=== PATIENT | female | born 1985 | race Caucasian/White ===

== ENCOUNTER 2022-04-18 00:30 | Day surgery (SDC) | payer OTHER, SELFPAY ==
[2022-04-11 10:42] VITALS: BMI 31.4
--- NOTE | 2022-04-11 10:43 | PC.NURSE ---
Report to the Outpatient Waiting Room, entrance under the green pavilion located off [facility], at time _0845__ on date _04/18/22_. OR Time: __1045_. Time changes happen often and if your time is changed the preop area will call you the afternoon before. - You and your visitor will be asked to self-screen and do not enter if you have any COVID symptoms. - Only one visitor and NO children visitors are allowed at this time. - The patient visitor is requested to leave or wait in car when not with patient due to restrictions. - A mask is required within the hospital. Patients may have clear liquids (water, carbonated beverages, clear teas, apple juice) until 3 hours prior to surgery with a maximum of 20 ounces. - No food from midnight until time of surgery - Infants may have breast milk until 4 hours before surgery, infant formula 6 hours prior to surgery. - Children will be allowed to drink immediately following surgery. If applicable, please bring a bottle or sippy cup to assist with drinking. Juice, water, soda, and popsicles are readily available. For infants on formula, please bring formula the day of surgery. Pacifiers are allowed. Take the following medications with a SIP of water the morning of surgery: __prozac___ Medications to discontinue per physician _stop vitamins and supplements 3 days prior Date to take last dose Please no make-up, nail frisian, hairspray, perfume, deodorant, or body powder the day of surgery. No jewelry (including any body piercings) or valuables the day of surgery, leave them at home. Please take a shower or bath the night before, or the morning of, surgery with an antibacterial soap. Wear comfortable, loose fitting clothing. Children are encouraged to wear pajamas. - Jewelry must be removed prior to entering the operating room. Rings and piercings that are not removed may be cut off. - The hospital will not accept responsibility for valuables. - Please leave all valuables, including medications, at home the day of surgery. If you are going home after surgery, a licensed hazmat cdl driver must drive you home. - NO public transportation without another adult. - We recommend that an adult stay with you for 24 hours following discharge. - We also recommend that you do not drive, make important decision, drink alcoholic beverages, or take any drugs that were not prescribed by your health care provider for at least 24 hours after your discharge time. For Pediatric surgeries, we recommend two adults accompany the child home (only one inside the building at this time). Follow any additional instructions given to you from your surgeon. If you or anyone in your household have experienced Covid symptoms in the past week, please notify your surgeon or the nurse liaison at the phone number below for possible testing. Telephone instructions given to _patient_and asked if any additional questions and then verbalized understanding. Patient advised to call surgeon office or pre surgery nurse liaison [phone] if any additional questions.
[2022-04-18] VITALS (10 sets, daily range): BP systolic 102–127; BP diastolic 51–85; PULSE 42–65; RESP 10–16; TEMP 36–36.3; O2SAT 97–100
[2022-04-18] MEDS: LACTATED RINGERS 1,000 ML 30 ML IV CONT ×2 (07:00→09:37)
[2022-04-18] MEDS: ACETAMINOPHEN 500 MG TABLET 1000 MG PO (07:00)
[2022-04-18] MEDS: KETOROLAC 15 MG/ML VIAL (*BKC) IV PUSH (07:00)
--- NOTE | 2022-04-18 07:34 | WPDHPUPDATE1 ---
History and Physical Update Update Date/Time: 04/18/22 07:34 History and Physical has been reviewed, including an updated exam of the patient. There are NO changes in the patient's condition. Risks, benefits, and alternatives have been discussed and questions answered. Patient agrees to proceed with procedure.
--- NOTE | 2022-04-18 07:34 | PM.HPGS ---
History of Present Illness History of Present Illness Consent: Risks, benefits, and alternatives have been discussed and questions answered. Patient agrees to proceed with procedure. Chief complaint: Vol Sterilization Narrative: Mary Piedra is a 36 year old female presenting for bilateral tubal ligation with Falope rings. Patient has completed her childbearing and after reviewing all options, she has requested permanent sterilization. Risks of infection, bleeding, perforation and injury to internal organs, and tubal failure were reviewed. Increased ectopic if tubal fails was also discussed. The permanent and irreversible nature of a tubal was also reviewed. Patient voices understanding and agrees to proceed. Review of Systems Review of Systems: not repeated day of surgery; patient states no changes in status PMFSH Past Medical History Medical History (Updated 04/18/22 @ 07:37 by Kristina Garrison MD) Anxiety History of Surgical History Surgical History (Updated 04/18/22 @ 07:36 by Kristina Garrison MD) History of Family History Family History (Updated 04/09/15 @ 09:07 by DOCTOR UNKNOWN) Other Family history of allergic disorder Family history of cardiac disorder Social History Social History Smoking status: Never smoker Second hand tobacco smoke exposure: No Alcohol intake: current Drinks per week: 1 Substance use: never Substance use type: does not use Living arrangements: with family Spiritual care concerns: No Meds Home Medications and Allergies Home Medications Medication Instructions Recorded Confirmed Type fluoxetine 10 mg tablet 10 mg PO DAILY 04/11/22 04/18/22 History norethindrone 1 mg-ethinyl 1 tablet PO DAILY 04/11/22 04/18/22 History estradiol 20 mcg (21)-iron 75 mg (7) tablet ([place] Fe 07/29 (28)) Allergies Allergy/AdvReac Type Severity Reaction Status Date / Time amoxicillin Allergy Mild Rash Verified 04/18/22 07:05 Penicillins Allergy Unknown Unknown Verified 04/18/22 07:05 Vital Signs Vital Signs - 24 hr 04/18/22 06:43 Temperature 96.8 F L Pulse Rate 65 Respiratory Rate 16 Blood Pressure 124/84 Pulse Oximetry 100 Oxygen Delivery Room Air Exam Const: General: healthy appearing and alert Orientation/consciousness: patient oriented x3 GI: GI Palp: Yes Soft to palpation, No Tenderness to palpation present (GI) and No Palpable mass present : External Female Exam: normal external appearance Speculum Exam - Vagina: normal appearance of the vagina and normal vaginal discharge Speculum Exam - Cervix: normal appearance of the cervix Bimanual exam- vagina & uterus: uterine size normal and consistency normal Bimanual Exam- Adnexa, other: normal adnexae and No adnexal tenderness Neuro: General: patient oriented x3 Assessment and Plan Assessment and plan (1) Encounter for sterilization: Code(s): Z30.2 - Encounter for sterilization Status: Acute Assessment and Plan: Plan to proceed with laparoscopic bilateral tubal ligation with Falope rings
--- NOTE | 2022-04-18 08:05 | P.PNAN_ITS ---
Anes - Initial Pre Proc Eval Procedure: Operation Date: 04/18/22 08:15 Proposed Procedures p Laparoscopic Bilateral Tubal Ligation with Fallopian Rings - Kristina Garrison MD Date/Time: 04/18/22 08:05 Surgeon: Kristina Garrison MD Pre Op Diagnosis: Vol Sterilization Patient Data Age: 36 Gender: F Height: 1.68 m Weight: 87.5 kg Last Vital Signs Temp 36.0 C L 04/18/22 06:43 Pulse 65 04/18/22 06:43 Resp 16 04/18/22 06:43 BP 124/84 04/18/22 06:43 Pulse Ox 100 04/18/22 06:43 O2 Del Method Room Air 04/18/22 06:43 Allergies Allergy/AdvReac Type Severity Reaction Status Date / Time amoxicillin Allergy Mild Rash Verified 04/18/22 07:05 Penicillins Allergy Unknown Unknown Verified 04/18/22 07:05 Home Medications Medication Instructions Recorded Confirmed Type fluoxetine 10 mg tablet 10 mg PO DAILY 04/11/22 04/18/22 History norethindrone 1 mg-ethinyl 1 tablet PO DAILY 04/11/22 04/18/22 History estradiol 20 mcg (21)-iron 75 mg (7) tablet ([place] Fe 07/29 (28)) Patient hx anesthesia problems: none Family hx anesthesia problems: none Results Review: All pre-operative results and documents have been reviewed as part of the pre- operative evaluation. [facility] Past Medical History Medical History Anxiety Surgical History Surgical History History of Family History Family History Other Family history of allergic disorder Family history of cardiac disorder Social History Social History Smoking status: Never smoker Second hand tobacco smoke exposure: No Alcohol intake: current Drinks per week: 1 Substance use: never Substance use type: does not use Living arrangements: with family Spiritual care concerns: No Anes - Eval Final PreProcedure Day of Procedure 04/18/22 08:05 Patient weight: obese Heart: regular rate and rhythm Lungs: clear to auscultation Airway: Mallampati scale class II Neurological: alert and oriented Last oral intake: >/= 8 hours ASA classification: II Emergent: no Anesthetic plan: proceed Anesthesia type and monitoring: general ETT and standard monitoring Results Review: All pre-operative results and documents have been reviewed as part of the pre- operative evaluation. Informed Consent: The patient's anesthetic plan and its attendant risks and benefits were discussed with the patient/family/POA. Questions were solicited and answers provided to the satisfaction of the patient/family/POA.
--- NOTE | 2022-04-18 08:57 | W.PM.PROC2 ---
Procedure Note - Detailed Date of Procedure 04/18/22 Pre-op Diagnosis Request sterilization Post-op Diagnosis Same Procedure Performed Laparoscopic bilateral tubal ligation with Falope rings Surgeon Kristina Garrison MD Anesthesia General Findings Normal-appearing tubes, ovaries, and uterus Description of Procedure The patient is taken to operating and placed under anesthesia in the dorsal lithotomy position. The patient is prepped and draped in the usual sterile fashion. The staff had previously drained the bladder. The bivalve speculum is placed in the vagina and the cervix grasped on the anterior lip with a tenaculum. The acorn manipulator was placed and the speculum was removed. Attention was then turned to the abdomen where a vertical skin incision was made at the base of the umbilicus. The abdomen is tented and the Veress needle placed. Patient pressure is 4 mmHg. Pneumoperitoneum was obtained to a patient pressure of 15mmHg. The Veress needle was removed and the 5mm Optiview trocar is placed while tenting the abdomen with towel clamps. The intra-abdominal placement was confirmed with the laparoscope. The patient is placed in Trendelenburg. The 8mm trocar is placed through horizontal incision 2cm above the symphysis pubis in the midline under direct visualization. The blunt probe was used to bring the tubes into the surgical field. The ring applicator was used and the left tube grasped. The tube was brought up into the applicator and a ring was applied. The 2nd ring is released upon changing the settings to the 2nd position. The ring is grasped with a grasper and removed from the abdomen. A 2nd set of rings is opened and placed and the right tube is grasped with the applicator a good loop of tube was brought into the applicator and a ring was applied. All instruments are removed and the pneumoperitoneum was reduced. Skin incisions were closed using 4-0 nylon in an interrupted fashion. Vaginal instruments are removed. Patient is awakened from anesthesia and taken to recovery in stable condition. Sponge, needle, and instrument counts are correct per the OR staff. Estimated Blood Loss 5 Drains No Packing No Pathology None sent Complications No immediate complications Condition Stable Disposition PACU
[2022-04-18] MEDS: SCOPOLAMINE 1.5 MG PATCH TRANSDERM (09:23)
[2022-04-18] MEDS: fentaNYL CITRATE INJ (*CRX) 100 MCG/2 ML VIAL 25 MCG IV PUSH ×2 (09:34→09:36)
--- NOTE | 2022-04-18 09:42 | SUR.PHASEI ---
0940: Simple mask removed.
[2022-04-18] MEDS: ONDANSETRON INJ 4 MG/2 ML VIAL IV PUSH (10:14)
[2022-04-18] MEDS: diphenhydrAMINE HCl INJ 50 MG/ML VIAL 25 MG IV PUSH (10:35)
[2022-04-18] MEDS: oxyCODONE HCL (*CRX) 5 MG TAB IR PO (11:01)
== END 2022-04-18 11:40 | disposition home or self-care (01) ==
PROVIDERS: PCP Family Medicine; Visit Provider Obstetrics & Gynecology Gynecology
PROC: (CPT 58671; principal; 2022-04-18 08:15)
DX: Z30.2 Encounter for sterilization (principal)
CPT/HCPCS: 58671; A4264; A9270; J0330; J1100; J1170; J1200; J1885; J2250; J2405; J2704; J3010; J7120